=== PATIENT | female | born 1985 | race Caucasian/White ===

== ENCOUNTER 2019-07-22 06:30 | Day surgery (SDC) | payer MEDICAID ==
[2019-07-19 16:09] LABS: BASOPHILS % (AUTO) 0.5 % (0-1); EOSINOPHILS # (AUTO) 0.1 X10'3 (0-0.9); EOSINOPHILS % (AUTO) 1.6 % (0-6); LYMPHOCYTES # (AUTO) 2.2 X10'3 (1.1-4.8); LYMPHOCYTES % (AUTO) 25.2 % (21-51); MEAN CORPUSCULAR HGB CONC 34.5 g/dL (33.0-36.5); MEAN CORPUSCULAR VOLUME 92.7 FL (78-98); MEAN PLATELET VOLUME 7.6 FL (7.4-10.4); MONOCYTES # (AUTO) 0.7 X10'3 (0-0.9); MONOCYTES % (AUTO) 7.8 % (2-12); NEUTROPHILS # (AUTO) 5.5 X10'3 (1.8-7.7); NEUTROPHILS % (AUTO) 64.9 % (42-75); PRE OP HEMATOCRIT 41.1 % (35.0-45.0); PRE OP HEMOGLOBIN 14.2 g/dL (12.0-16.0); PRE OP PLATELET COUNT 243 X10'3 (140-440); RED BLOOD COUNT 4.43 X10'6 (4.20-5.60); RED CELL DISTRIBUTION WIDTH 12.5 % (11.5-14.5)
[2019-07-19 16:27] LABS: ALBUMIN/GLOBULIN RATIO 1.3 (1.1-1.5); ALKALINE PHOSPHATASE 65 IU/L (46-116); BLOOD UREA NITROGEN 13 MG/DL (7-18); BUN/CREATININE RATIO 18.3 (6.6-38.0); CALCIUM 8.7 MG/DL (8.5-10.1); CHLORIDE 105 MMOL/L (99-107); CREATININE 0.71 MG/DL (0.40-0.90); PRE OP ALT 62 U/L (30-65); PRE OP ANION GAP 8 (8-16); PRE OP AST 27 U/L (10-37); PRE OP BILIRUB, TOTAL 0.4 MG/DL (0.0-1.0); PRE OP GLUCOSE 100 MG/DL (70-104); PRE OP POTASSIUM 3.8 MMOL/L (3.4-5.1); PRE OP SODIUM 139 MMOL/L (135-145); TOTAL CARBON DIOXIDE 26.5 MMOL/L (24-32); TOTAL PROTEIN 7.2 G/DL (6.4-8.2); eGFR > 90 ML/MIN
[2019-07-19 16:28] LABS: HCG SERUM QL NEGATIVE
[2019-07-22] VITALS (8 sets, daily range): BP systolic 115–143; BP diastolic 75–87
[~2019-07-22] VITALS: Ht 160 cm; Wt 70.0 kg
[~2019-07-22 06:30] MED LIST: NO HOME MEDS; famotidine 20mg tablet PO ONE; ringers solution, lacted 1,000 ML IV SCH
[2019-07-22] MEDS ORDERED: BUPIVAcaine 0.5% inj/PF 30 ML ONE (06:44)
[2019-07-22] MEDS ORDERED: morphine 2 MG/ML inj. syringe IV PRN (07:25)
[2019-07-22] MEDS ORDERED: meperidine/PF 25mg/ml syringe IV PRN ×3 (07:25)
[2019-07-22] MEDS ORDERED: proCHLORperazine 10 MG/2 ml inj IV PRN (07:25)
[2019-07-22] MEDS ORDERED: ondansetron/PF 4mg/2ml inj IV PRN (07:25)
[2019-07-22] MEDS ORDERED: morphine 4 MG/ML inj SYRINge IV PRN (07:25)
[2019-07-22] MEDS ORDERED: ringers solution, lacted 1,000 ML IV SCH (07:25)
[2019-07-22] MEDS ORDERED: glycopyrrolate 0.2mg/ml inj ONE (09:08)
[2019-07-22] MEDS ORDERED: sevoflurane 250ml liquid IH ONE (09:08)
[2019-07-22] MEDS ORDERED: ketorolac trometh. 30mg/ml inj. ONE (09:08)
[2019-07-22] MEDS ORDERED: dexamethasone sod phosphate 10mg/ml inj ONE (09:08)
[2019-07-22] MEDS ORDERED: neostigmine methylsulfate 1 MG/ML 10ml vial ONE (09:08)
[2019-07-22] MEDS ORDERED: midazolam 2 mg/2 ml injection ONE (09:13)
[2019-07-22] MEDS ORDERED: fentaNYL/PF 50MCG/1 ML 2ML syringe ONE (09:13)
[2019-07-22] MEDS ORDERED: LIDOcaine 2% (20mg/ml) 5ml vial ONE (09:23)
[2019-07-22] MEDS ORDERED: rocuronium 10mg/ml inj IV ONE (09:23)
[2019-07-22] MEDS ORDERED: propofol inj 20 ML IV ONE (09:23)
[2019-07-22] MEDS ORDERED: ondansetron/PF 4mg/2ml inj ONE (09:24)
--- NOTE | 2019-07-22 10:27 | NUR ---
Received from OR via , accompanied by Anesthesiologist DR ALEXANDER and report given by Anesthesiolgist. AWAKENS TO VOICE. VITALS STABLE. DRESSING DI. CHET PAIN. ABD SOFT
[2019-07-22] MEDS ORDERED: HYDROcodone/acetaminophen 5mg/325mg tablet PO PRN ×2 (11:00)
--- NOTE | 2019-07-22 11:51 | NUR ---
AWAKE AND ORIENTED. VITALS STABLE. DRESSING DI. STATES ONLY MIN PAIN. HOME WITH HER SPOUSE AT THIS TIME.
== END 2019-07-22 11:51 | disposition home or self-care (01) ==
LOC: PAS 06:30
PROVIDERS: ATTEND Specialist
DX: Z30.2 Encounter for sterilization (principal); G43.909 Migraine, unspecified, not intractable, without status migrainosus; Z98.890 Other specified postprocedural states; Z88.8 Allergy status to other drugs, medicaments and biological substances; Z79.899 Other long term (current) drug therapy
CPT/HCPCS: 36415; 58662; 58670; 80053; 82948; 84703; 85025; 86885; 86900; 86901; J1100; J1885; J2001; J2250; J2405; J2704; J2710; J3010; J7120; A4618; J3490

== ENCOUNTER 2022-09-08 18:40 | Emergency (ER) | payer MEDICAID ==
[~2022-09-08] VITALS: Ht 160 cm; Wt 68.2 kg
[~2022-09-08 18:40] MED LIST changes: -famotidine 20mg tablet PO ONE; -ringers solution, lacted 1,000 ML IV SCH
[2022-09-08 19:07] VITALS: BP 121/84
== END 2022-09-08 19:31 | disposition home or self-care (01) ==
LOC: ER 18:41
DX: Z04.1 Encounter for examination and observation following transport accident (principal); Z88.1 Allergy status to other antibiotic agents; Z91.041 Radiographic dye allergy status; Z91.048 Other nonmedicinal substance allergy status; V87.7XXA Person injured in collision between other specified motor vehicles (traffic), initial encounter; Y93.89 Activity, other specified; Y92.89 Other specified places as the place of occurrence of the external cause; Y99.8 Other external cause status
CPT/HCPCS: 99283